=== PATIENT | male | born 1935 | race Two or more races ===

== ENCOUNTER 2017-09-14 11:23 | Emergency (ER) | payer MEDICARE, MEDICAID ==
--- NOTE | 2017-09-14 11:47 | ED Physician Chart ---
ED Chief Complaint/HPI - Patient Information Date Seen:: 10/15/17 Time Seen:: 11:20 Chief Complaint:: DISLODGED G-TUBE History of Present Illness:: PT WAS NOTED TO HAVE A LEAKING G-TUBE. IT WAS TAKEN OUT BY HIS ATTENDING PHYSICIAN WHO WAS UNABLE TO REPLACE THE TUBE. PATIENT WAS THEN REFERRED TO THE EMERGENCY DEPARTMENT TO [facility] FOR TUBE REPLACEMENT. THE PATIENT IS UNABLE TO PROVIDE ANY ADDITIONAL INFORMATION. PATIENT WAS UNABLE TO PROVIDE ANY ADDITIONAL INFORMATION ON THE HPI. Allergies:: Allergies Allergy/AdvReac Type Severity Reaction Status Date / Time No Known Allergies Allergy Verified 09/14/17 11:26 Vitals:: Vital Signs - 8 hr 09/14/17 11:28 Temp 98.8 F HR 110 RR 21 BP 122/62 O2 Sat % 100 Historian:: Other (DARONNK SHAGUFTAI DIDN'T MAKE BUT MAYBE I DIDN'T GIVE IT) Review:: Nurse's Note Reviewed, Transfer documents Reviewed, Patient unable to respond ED Review of Systems - Review of Systems General/Constitutional: Other (difficulty communicating with patient and unable to obtain ROS.) ED Past Medical History - Past Medical History Obtainable: No Past Medical History: No significant medical hx ED Physical Exam - Physical Examination General/Constitutional: Awake, Well-developed, well-nourished, No distress Head: Atraumatic Eyes: Lids, conjuctiva normal, PERRL, EOMI Skin: No rash, No skin lesions, No ecchymosis, Well hydrated, No lymphadenopathy ENMT: External ears, nose nl, TM canals nl, Oropharynx nl, Tonsils nl Neck: Nontender, No JVD, No mass, No stridor Respiratory: Nl effort/Exclusion, Clear to Auscultation, No Wheeze/Rhonchi/Rales Cardio Vascular: RRR, No murmur, gallop, rubs, NL S1 S2 (G-TUBE STOMAIN LEFT UPPER QUADRANT.), Carotid/Femoral/Distal pulses equal bilaterally GI: No tenderness/rebounding/guarding, No organomegaly, No hernia, Nondistended , No mass/bruits, No McBurney tenderness Neuro/Psych: DTR's symmetric, Normal sensory exam, Mood normal Other Neuro/Psych comments:: NON-AMBULATORY ED Labs/Radiology/EKG Results - Lab Results Results: UPPER G.I.CONFIRMEDTHAT THE G-TUBEWAS IN THE CORRECT POSITION. ED Assessment - Assessment General Assessment: PATIENT HADHIS G-TUBE REMOVEDBY HIS PRIMARY PHYSICIANAND COULDN'T GET IT REPLACED. HE CAME TO THE ERAND THE G-TUBE WAS REPLACEDWITH RADIOGRAPHIC CONFIRMATION OF THE PLACEMENT THE PT WAS TP HIS NURSING RTN HE WAS RETURNEDTO HIS PRIOR SKILLED FACCILITY INSTABLE. ED Septic Shock - . Is Septic Shock (SBP<90, OR Lactate>4 mmol\L) present?: No - <6hrs of presentation: Vital Signs: Vital Signs - 8 hr 09/14/ 11:28 Temp 98.8 F HR 110 RR 21 BP 122/62 O2 Sat % 100 ED Reassessment (Disposition) - Reassessment Reassessment Condition:: Improved - Diagnosis Diagnosis:: DISPLACED G-TUBE - Patient Disposition Discharge/Transfer:: Residential/Boarding Care ED Discharge Plan - Patient Disposition Admit/Discharge/Transfer: PT DISCHARGED HOME Condition at Disposition: Improved Instructions: Gastric Tube Replacement Accepting Physician: Joshua Moreno [Active] -
[2017-09-14] MEDS ORDERED: Diatrizoate Meglumine/Diatri 30 mL Sol ONE (13:04)
--- NOTE | 2017-09-15 08:22 | Diagnostic Imaging Report ---
Upper GI (Limited) HISTORY: Gastrostomy tube placement, pain Water-soluble contrast was instilled through the patient's gastrostomy tube. The exam demonstrates opacification of the gastric lumen. IMPRESSION: Confirmation of gastrostomy tube within the gastric lumen.
== END 2017-09-14 13:59 | disposition home or self-care (01) ==
LOC: ER 11:23
DX: Z43.1 Encounter for attention to gastrostomy (principal)
CPT/HCPCS: Z7502